=== PATIENT | male | born 1990 | race African-American/Black ===

== ENCOUNTER 2022-07-13 20:01 | Emergency (ER) | payer SELFPAY ==
[~2022-07-13] VITALS: Ht 175.3 cm; Wt 88.5 kg
[2022-07-13 20:25] VITALS: BP 115/96
--- NOTE | 2022-07-13 20:37 | NUR ---
COVID-19 and flu swabs collected and sent to lab.
--- NOTE | 2022-07-13 21:17 | NUR ---
Patient taken to bed 9.
--- NOTE | 2022-07-13 21:17 | NUR ---
PT TAKEN TO BED 9
--- NOTE | 2022-07-13 21:28 | NUR ---
Note undone in [facility] - 07/13/22 at 2128 by [id number] Patient A/Ox4, resting in bed, no s/s of distress. Addendum: 07/13/22 at 8 by [id number] Amendment undone in [facility] - 07/13/22 at 2128 by [email or web address] Patient A/Ox4, resting in bed, chest rise and fall symmetrical, no c/o pain or s/s of distress.
--- NOTE | 2022-07-13 21:29 | NUR ---
Patient A/Ox4, resting in bed, chest rise and fall symmetrical, no s/s of distress. Addendum: 07/13/22 at 2343 by [id number] Patient A/Ox4, resting in bed, chest rise and fall symmetrical, no s/s of distress, on monitor.
--- NOTE | 2022-07-13 22:50 | NUR ---
Dr. Myers examining patient.
--- NOTE | 2022-07-13 22:56 | NUR ---
Izzy mathew in [facility] - 07/13/22 at [address] Myers examining patient.
[2022-07-13] MEDS ORDERED: KETOROLAC 30 MG/ML VIAL IVP ONE (23:10)
[2022-07-13] MEDS ORDERED: NACL 0.9% 1,000 ML IV ONE (23:10)
--- NOTE | 2022-07-13 23:19 | NUR ---
X-Ray at bedside.
[2022-07-13 23:24] LABS: BASOPHILS # (AUTO) 0.1 K/uL (0.00-0.22); BASOPHILS % (AUTO) 0.5 % (0.0-2.0); HEMATOCRIT 39.2 % (36-52); HEMOGLOBIN 13.9 g/dL (12.0-18.0); LYMPHOCYTES # (AUTO) 1.4 K/uL (2.0-11.5); LYMPHOCYTES % (AUTO) 14.1 % (20.5-51.1); MEAN CORPUSCULAR HEMOGLOBIN 29 pg (27-31); MEAN CORPUSCULAR HGB CONC 36 g/dL (33-37); MEAN CORPUSCULAR VOLUME 81.4 fL (80-94); MONOCYTES # (AUTO) 1.9 K/uL (0.8-1.0); MONOCYTES % (AUTO) 20.1 % (1.7-9.3); NEUTROPHILS # (AUTO) 6.3 K/uL (1.8-7.7); NEUTROPHILS % (AUTO) 65.3 % (42.2-75.2); PLATELET COUNT (AUTO) 198 K/uL (140-450); RED BLOOD CELL COUNT(AUTO) 4.82 MIL/uL (4.20-6.10); RED CELL DISTRIBUTION WIDTH 13.2 % (11.6-13.7); WHITE BLOOD COUNT (AUTO) 9.6 K/uL (4.8-10.8)
[2022-07-13 23:24] LABS: APPEARANCE,URINE CLOUDY (CLEAR); BILIRUBIN,URINE 1+ (NEGATIVE); BLOOD, URINE 2+ (NEGATIVE); COLOR,URINE YELLOW (YELLOW); LEUKOCYTE ESTERASE ,URINE 3+ (NEGATIVE); NITRITE, URINE NEGATIVE (NEGATIVE); UGLUCOSE NEGATIVE (NEGATIVE)
[2022-07-13 23:35] LABS: ANION GAP 19.1 (8-16); CARBON DIOXIDE 22.2 mmol/L (21-32); CREATININE 1.6 mg/dL (0.6-1.3); POTASSIUM 3.3 mmol/L (3.5-5.1)
[2022-07-13 23:38] LABS: BARBITURATE, URINE NEGATIVE ng/ml (NEG <=200); BENZODIAZEPINE, URINE NEGATIVE ng/mL (NEG <=200); CANNABINOID, URINE POSITIVE ng/mL (NEG <=50); COCAINE, URINE NEGATIVE ng/mL (NEG <=300); OPIATE, URINE NEGATIVE ng/mL (NEG <=2000); PHENCYCLIDINE SCREEN,URINE NEGATIVE ng/mL (NEG <=25)
[2022-07-13 23:39] LABS: RBC,URINE 0-5 /HPF (0-5); WBC,URINE TOO MANY TO COUNT /HPF (0-5)
--- NOTE | 2022-07-13 23:43 | NUR ---
Patient A/Ox4, resting in bed, chest rise and fall symmetrical, no s/s of distress, on monitor.
[2022-07-14] MEDS ORDERED: POTASSIUM CHLORIDE 10 MEQ TABER PO ONE
--- NOTE | 2022-07-14 00:20 | NUR ---
Patient A/Ox4, resting in bed, chest rise and fall symmetrical, no s/s of distress, on monitor.
--- NOTE | 2022-07-14 01:17 | NUR ---
Patient A/Ox4, resting in bed, chest rise and fall symmetrical, no s/s of distress, on monitor.
[2022-07-14] MEDS ORDERED: HYDROcodone/APAP 5/325 MG 1 TAB TAB PO ONE (01:45)
--- NOTE | 2022-07-14 02:12 | NUR ---
Patient A/Ox4, resting in bed, chest rise and fall symmetrical, no s/s of distress, on monitor.
[2022-07-14] MEDS ORDERED: cefTRIAXone 1,000 MG VIAL ONE (02:33)
[2022-07-14] MEDS ORDERED: ACET-8905 PO (02:38)
[2022-07-14] MEDS ORDERED: CEPH-588 PO (02:38)
[2022-07-14 03:13] VITALS: BP 101/59
--- NOTE | 2022-07-16 16:26 | NUR ---
LATE ENTRY. RECEIVED POSITIVE URINE CULTURE. FORM GIVEN TO DR CARIAS. ATTEMPTED TO CALL PATIENT FOR RE-EVALUATION, NO ANSWER, MESSAGE LEFT. FORM PLACED IN BINDER
== END 2022-07-14 03:13 | disposition home or self-care (01) ==
LOC: MED 20:01
DX: N39.0 Urinary tract infection, site not specified (principal); Z20.822 Contact with and (suspected) exposure to COVID-19; M79.10 Myalgia, unspecified site; E86.0 Dehydration; E87.6 Hypokalemia; Z79.899 Other long term (current) drug therapy
CPT/HCPCS: 36415; 71045; 80048; 80305; 81001; 85025; 87086; 87426; 87491; 87804; 96361; 96365; 96375; 99284; J0696; J1885; J7030; Q0092